=== PATIENT | female | born 1995 | race Caucasian/White ===

== ENCOUNTER → 2024-09-18 | Outpatient (CLI) | payer SELFPAY ==
[2024-09-18 09:23] LABS: BASO # 0.03 K/mm3 (0.02-0.10); EOS # 0.08 K/mm3 (0.04-0.40); EOS % 1.4 % (1.0-5.0); HEMATOCRIT 42.1 % (37.0-47.0); LYMPH# 1.58 K/mm3 (1.50-4.00); MEAN CELL VOLUME 89 fl (78-100); MEAN CORPUSCULAR HEMOGLOBIN 30 pg (27-31); MEAN CORPUSCULAR HGB CONC 33 g/dL (33-37); MEAN PLATELET VOLUME 10.3 fl (7.4-10.4); MONO # 0.38 K/mm3 (0.20-0.80); NEU # 3.83 K/mm3 (1.40-6.50); PLATELET COUNT 230 K/mm3 (130-400); RED BLOOD COUNT 4.71 M/mm3 (4.10-5.30); RED CELL DISTRIBUTION WIDTH 12.6 % (11.5-14.5); WHITE BLOOD COUNT 5.9 K/mm3 (4.8-10.8)
[2024-09-18 09:26] LABS: ALBUMIN 4.6 g/dL (3.5-5.0)
[2024-09-18 09:27] LABS: CALCIUM 9.6 mg/dL (8.3-10.5)
[2024-09-18 09:29] LABS: TOTAL PROTEIN 7.4 g/dL (6.4-8.3)
[2024-09-18 09:30] LABS: TOTAL BILIRUBIN 0.5 mg/dL (0.2-1.2)
== END ==
LOC: AMSURD 08:47
PROVIDERS: Nurse Practitioner
DX: R07.9 Chest pain, unspecified (principal)